=== PATIENT | female | born 1940 | race Caucasian/White ===

== ENCOUNTER 2017-12-06 15:29 | Outpatient (CLI) | payer MEDICARE, BC ==
[~2017-12-06 15:29] MED LIST: Magnevist 469MG/ML 20 ML VIAL ONE
--- NOTE | 2017-12-06 17:25 | MRI ---
BRAIN MRI WITH AND WITHOUT CONTRAST 12/06/17 HISTORY: Transient ischemic attack and dizziness. COMPARISON: 03/21/10. TECHNIQUE: Brain MRI is performed with and without intravenous gadolinium administration. Multisequential, multi planar imaging is performed. FINDINGS: No hemorrhage on the axial gradient echo sequence. No parenchymal mass, mass effect or midline shift. Brain volume is age appropriate. Cortical lozoya-white matter differentiation is preserved. Ventricles and sulci are patent and symmetric. Central arterial flow voids are maintained. Absent restricted diffusion. Scattered T2 and FLAIR white matter hyperintensities due to chronic small vessel ischemic change. Mild mucosal disease involving the ethmoid air cells. Adequate mastoid air cell aeration. No pathologic enhancement of the brain parenchyma. IMPRESSION: 1. No acute intracranial process. No pathologic enhancement of the brain parenchyma. Absent rest ricted diffusion. 2. Chronic small vessel ischemic changes of the white matter are noted. POS: [facility]
== END 2017-12-06 15:30 | disposition home or self-care (01) ==
LOC: SCSMRI 15:29
PROVIDERS: ATTEND Internal Medicine
DX: R42 Dizziness and giddiness (principal); G93.89 Other specified disorders of brain; Z86.73 Personal history of transient ischemic attack (TIA), and cerebral infarction without residual deficits
CPT/HCPCS: 70553; 82565